=== PATIENT | male | born 1980 | race Caucasian/White ===

== ENCOUNTER 2020-10-30 13:39 | Emergency (ER) | payer MEDICARE, MEDICAID, SELFPAY ==
[2020-10-30 13:54] VITALS: BP 135/86; PULSE 65; RESP 18; TEMP 36.6; O2SAT 97; BMI 29.8
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
[2020-10-30] MEDS: ketorolac 60 mg/2 mL INJ IM (15:58)
[2020-10-30] MEDS: orphenadrine 30 mg/mL Inj 2 mL 60 MG IM (15:59)
[2020-10-30 16:40] VITALS: BP 136/81; PULSE 78; RESP 16; O2SAT 97
== END 2020-10-30 16:41 | disposition home or self-care (01) ==
PROVIDERS: Emergency Provider Physician Assistant; PCP Family Medicine
DX: S13.4XXA Sprain of ligaments of cervical spine, initial encounter (principal); R51.9 Headache, unspecified; M54.9 Dorsalgia, unspecified; V49.40XA Driver injured in collision with unspecified motor vehicles in traffic accident, initial encounter
CPT/HCPCS: 70450; 72125; 72128; 72131; 96372; 99283; J1885; J2360